=== PATIENT | female | born 1955 | race Caucasian/White ===

== ENCOUNTER 2017-04-03 15:38 | Emergency (ER) | payer OTHER ==
[~2017-04-03] VITALS: Ht 162.6 cm; Wt 81.2 kg
[~2017-04-03 15:38] MED LIST: BYSTOLIC5 M1 PO; CYANOCOBAL1000 MCG/2 IM; CYCLOBENZAPRINE10 M1 PO; FOLIC ACID1 M1 PO; OXAZEPAM10 M1 PO; RISPERIDONE1 M1 PO; SYNTHROID88 MCG PO
--- NOTE | 2017-04-03 16:22 | ED SKIN/ALLERGY COMPLAINT ---
History of Present Illness General Chief Complaint: Skin Rash/ Abcess Stated Complaint: CYST ON RT BREAST Source: patient Exam Limitations: no limitations Vital Signs & Intake/Output Vital Signs & Intake/Output Vital Signs Date Time Temp Pulse Resp B/P B/P Pulse O2 O2 Flow FiO2 Mean Ox Delivery Rate 04/03 1712 98.0 75 20 136/80 98 Room Air 04/03 1543 98.9 73 15 132/79 97 Room Air Room Air Allergies Coded Allergies: caffeine (Severe, CP 03/06/16) levothyroxine (Intermediate, TACHYCARDIA 04/03/17) omeprazole (From PRILOSEC) (Intermediate, TACHYCARDIA 04/03/17) risperidone (Intermediate, TACHYCARDIA (CAN ONLY TAKE BRAND NAME) 04/03/17) Reconcile Medications Cephalexin (Keflex) 500 MG CAPSULE 1 CAP PO BID CELLULITIS Cyanocobalamin (Vitamin B-12) (Cyanocobalamin Injection) 1,000 MCG/1 ML VIAL 1 ML IM Q30D SUPPLEMENT (Reported) Folic Acid 1 MG TABLET 1 TAB PO DAILY SUPPLEMENT (Reported) Levothyroxine Sodium (Synthroid) 88 MCG TABLET 1 TAB PO DAILY AC THYROID ( Reported) Multivitamin (Multi-Day Vitamins) 1 EACH TABLET 1 TAB PO DAILY SUPPLEMENT ( Reported) Nebivolol HCl (Bystolic) 5 MG TABLET 1 TAB PO DAILY HEART (Reported) Oxazepam 10 MG CAPSULE 1 CAP PO TID PRN ANXIETY (Reported) Risperidone 1 MG TABLET 1 TAB PO QPM MENTAL HEALTH (Reported) Sulfamethoxazole/Trimethoprim (Bactrim Ds Tablet) 800 MG-160 MG TABLET 1 TAB PO BID CELLULITIS Triage Note: PT TO ED FOR C/C OF INTERMITTENT BURNING PAIN TO R BREAST. PT REPORTS THERE IS A LUMP ON AEREOLA. DENIES FEVERS AT HOME. PER PT, NO RASH. Triage Nurses Notes Reviewed? yes Onset: Gradual Duration: constant Timing: recent history Severity: moderate Severity Numbers: 5 Possible Factors: no cause identified HPI: Patient is a 61-year-old female who presents to emergency with a gradual onset of a three-day history of right-sided breast swelling and tender region. Patient denies any discharge denies any fever chills denies any similar symptoms in the past. (LUIS A KOLB) Past History Travel History Traveled to [place] past 21 day No Medical History Any Pertinent Medical History? see below for history Psychiatric: anxiety Endocrine: hypothyroidism, BORDERLINE DIABETIC Surgical History Surgical History: non-contributory Psychosocial History What is your primary language Panamanian Tobacco Use: Never used ETOH Use: denies use Illicit Drug Use: denies illicit drug use Family History Hx Contributory? No (LUIS A KOLB) Review of Systems Review of Systems Constitutional: Reports: no symptoms. EENTM: Reports: no symptoms. Respiratory: Reports: no symptoms. Cardiovascular: Reports: no symptoms. GI: Reports: no symptoms. Genitourinary: Reports: no symptoms. Musculoskeletal: Reports: no symptoms. Skin: Reports: see HPI, erythema, lumps. Neurological/Psychological: Reports: no symptoms. Hematologic/Endocrine: Reports: no symptoms. Immunologic/Allergic: Reports: no symptoms. All Other Systems: Reviewed and Negative (LUIS A KOLB) Physical Exam Physical Exam General Appearance: no apparent distress, alert, comfortable Skin: intact Comments: Well-developed well-nourished no apparent distress. HEENT: Atraumatic, extraocular motion intact Neck: Supple, no lymphadenopathy Back: Nontender Respiratory: No respiratory distress Extremities: No edema, full range of motion Neuro: Alert and oriented x3 Psych: Mood affect normal, normal memory normal judgment. Diagram Body: 1) Noted lateral of the areola and 1 centimeter fluctuant region with surrounding erythema warmth and tenderness. No active discharge (LUIS A KOLB) Progress Differential Diagnosis: abscess/cellulitis, allergic reaction, contact dermatitis, lyme disease, urticaria Plan of Care: Orders Procedure Date/time Status TRUNK AREA CULTURE 04/03 1756 Active Microbiology 04/03 1800 TRUNK: Culture & Sensitivity - RECD 04/03 1800 TRUNK: Gram Stain - RECD Patient will be treated for concerns of cellulitis and abscess to the right breast. Patient was afebrile. (LUIS A KOLB) Departure Departure Disposition: HOME OR SELF CARE Condition: Stable Clinical Impression Primary Impression: Cellulitis of right breast Secondary Impressions: Abscess of right breast Referrals: FALGUNI VELIZ,GUILLAUME Alonzo (PCP/Family) Additional Instructions: As discussed begin to apply warm compresses to the area. If the bandages fall off the have been applied to the emergency room reapply with the extra bandages provided to you. Return to emergency room/or follow up with your doctor in 2 days for wound recheck. Begin the prescription of Keflex and Bactrim as directed for the full course. Prescriptions waiting at [facility] pharmacy [facility] If symptoms worsen or if he develop a new concerning symptom return to the emergency room immediately Departure Forms: Customer Survey General Discharge Information Prescriptions: Current Visit Scripts Sulfamethoxazole/Trimethoprim (Bactrim Ds Tablet) 1 TAB PO BID #20 TAB Cephalexin (Keflex) 1 CAP PO BID #20 CAP (LUIS A KOLB) PA/IT AUDITOR Co-Sign Statement Statement: ED Attending supervision documentation- [] I saw and evaluated the patient. I have also reviewed all the pertinent lab results and diagnostic results. I agree with the findings and the plan of care as documented in the PA's/IT AUDITOR's documentation. [X] I have reviewed the ED Record and agree with the PA's/IT AUDITOR's documentation. [] Additions or exceptions (if any) to the PAs/IT AUDITOR's note and plan are summarized below: [] (PAULETTE HERNANDEZ,[facility]) Procedures Incision and Drainage Site: RIGHT BREAST Blade Size: 15 I & D Procedure: Yes: betadine prep, sterile drapes applied, sterile dressing applied. No: wick placed. Progress: Using sterile technique to the right breast of Betadine used 1% lidocaine 5 mL for local anesthesia. Using a 15 blade I made a 5 mm incision which mild purulent discharge was noted. Culture was obtained gauze and Tegaderm were then applied patient tolerated well (LUIS A KOLB)
[2017-04-03] MEDS ORDERED: MULTI-DAY VITA1 EACH PO (17:03)
[2017-04-03 17:12] VITALS: BP 136/80
[2017-04-03] MEDS ORDERED: BACTRIM DS TAB1 EACH PO (17:56)
[2017-04-03] MEDS ORDERED: KEFLEX500 M1 PO (17:56)
== END 2017-04-03 18:07 ==
LOC: ERH 15:38
DX: N61.0 Mastitis without abscess (principal); N61.1 Abscess of the breast and nipple
CPT/HCPCS: 87070; 87147